=== PATIENT | male | born 2005 | race Hispanic/Latino ===

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

== ENCOUNTER 2023-09-22 10:20 | Emergency (ER) | payer BC, OTHER ==
[~2023-09-22] VITALS: Ht 167.6 cm; Wt 136.1 kg
[2023-09-22] MEDS: METOCLOPRAMIDE 10 MG/2 ML VIAL IVP STA (11:14)
[2023-09-22] MEDS: 0.9%NACL 1000ML 1,000 ML IV STA (11:14)
[2023-09-22] MEDS: KETOROLAC 30MG VIAL (30MG/ML) IVP STA (11:15)
[2023-09-22 12:19] VITALS: BP 126/72; PULSE 90; RESP 20; O2SAT 100
== END 2023-09-22 12:22 | disposition home or self-care (01) ==
LOC: EDH 10:20
DX: J11.1 Influenza due to unidentified influenza virus with other respiratory manifestations (principal); R51.9 Headache, unspecified; E66.01 Morbid (severe) obesity due to excess calories; Z68.42 Body mass index [BMI] 45.0-49.9, adult
CPT/HCPCS: 99284; 96374; 96375; 87426; J7030; J1885; J2765